=== PATIENT | female | born 1995 | race Caucasian/White ===

== ENCOUNTER 2017-09-17 13:46 | Emergency (ER) | payer MEDICAID ==
[2017-09-17] MEDS ORDERED: Ketorolac 60 MG/2 ML SDV IM ONE (14:13)
--- NOTE | 2017-09-17 14:25 | EDM.PDOC ---
ED HPI GENERAL MEDICAL PROBLEM - General Chief Complaint: Back Pain or Injury Stated Complaint: BACK PAIN Time Seen by Provider: 09/17/17 14:25 Source of Information: Reports: Patient History Limitations: Reports: No Limitations - History of Present Illness INITIAL COMMENTS - FREE TEXT/NARRATIVE: HISTORY AND PHYSICAL: History of present illness: 21-year-old female presented to the emergency department with chief complaint of right lower back pain 7 days. Patient is originally from [place] and visiting here as well as in the process of moving. States that on Sunday of last week she was moving a couch by herself and while lifting, felt a pop in her right lower back. She had immediate pain in her right lower back with radiation into the right lower extremity anterior surface. She did see her primary care provider there in [place] and initial x-rays were negative. She was scheduled to get an MRI today , but has been unable to travel back home secondary to a vehicle problem. She has not had physical therapy yet. She is currently visiting here with her who recently got a job here. States that her primary care physician had prescribed her some [place] 10-325, which seem to be helping with the pain. She has also been taking ibuprofen. States that today while picking up her son. She had repeat sharp shooting pain in her right lower back. She denies any bowel or bladder incontinence. She denies any sensory or muscle weakness. She has no significant past medical history or arteries to medications. Review of systems: As per history of present illness and below otherwise all systems reviewed and negative. Past medical history: As per history of present illness and as reviewed below otherwise noncontributory. Surgical history: As per history of present illness and as reviewed below otherwise noncontributory. Social history: No reported history of drug or alcohol abuse. Family history: As per history of present illness and as reviewed below otherwise noncontributory. Physical exam: HEENT: Atraumatic, normocephalic, pupils reactive, negative for conjunctival pallor or scleral icterus, mucous membranes moist, throat clear, neck supple, nontender, trachea midline. Lungs: Clear to auscultation, breath sounds equal bilaterally, chest nontender. Heart: S1S2, regular, negative for clicks, rubs, or JVD. Abdomen: Soft, nondistended, nontender. Negative for masses or hepatosplenomegaly. Negative for costovertebral tenderness. Pelvis: Stable nontender. Genitourinary: Deferred. Rectal: Deferred. Extremities: Atraumatic, negative for cords or calf pain. Neurovascular unremarkable. Neuro: Awake, alert, oriented. Cranial nerves II through XII unremarkable. Cerebellum unremarkable. Motor and sensory unremarkable throughout. Exam nonfocal. Back: Pain on palpation from L2-S1. Patient has mild improvement of pain with forward flexion and worsening with backwards extension. Positive straight leg test. Worst pain with rightward clean and improvement with left lean. Diagnostics: [] Therapeutics: [place] 10?3 25 by mouth every 6 hours when necessary pain #12, Flexeril 10 mg by mouth 3 times a day Impression: Lumbar disc herniation with radiculopathy Lower back pain Plan: After exam and history. Patient's symptoms most consistent with a lumbar disc herniation. She has no decreased strength or sensation. She has significant pain in the lumbar area extending into the right lower extremity. We'll give her [place] 10-325 #12 as well as Flexeril 10 mg by mouth 3 times a day. She should continue with resting the area as well as following up with her primary care provider. I did talk to her that she may need physical therapy and should get that MRI for further diagnostic evaluation. Instructed to return to emergency department if she had any new or worsening symptoms. Specifically, any bowel or bladder incontinence or significant muscle weakness or sensation loss in that lower extremity. back Pain Score (Numeric/FACES): 8 - Related Data Allergies Allergy/AdvReac Type Severity Reaction Status Date / Time No Known Allergies Allergy Verified 09/17/17 13:57 Home Meds: Home Meds . 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 ED EXAM, GENERAL - Physical Exam Exam: See Below Course - Vital Signs Last Recorded V/S: Last Vital Signs Temp 97.8 F 09/17/17 13:57 Pulse 63 09/17/17 13:57 Resp 20 09/17/17 13:57 BP 143/81 H 09/17/17 13:57 Pulse Ox 98 09/17/17 13:57 - Orders/Labs/Meds Meds: Medications Discontinued Medications Generic Name Dose Route Start Last Admin Trade Name Freq PRN Reason Stop Dose Admin Ketorolac Tromethamine 60 mg 09/17/17 14:13 Toradol IM 09/17/17 14:14 ONETIME ONE Departure - Departure Time of Disposition: 14:48 Disposition: Home, Self-Care 01 Condition: Good Clinical Impression: Lumbar disc herniation with radiculopathy, Lumbar back pain with radiculopathy affecting right lower extremity - Discharge Information Referrals: PCP,None [Primary Care Provider] - Forms: ED Department Discharge Additional Instructions: My general discharge The following information is given to patients seen in the emergency department who are being discharged to home. This information is to outline your options for follow-up care. We provide all patients seen in our emergency department with a follow-up referral. The need for follow-up, as well as the timing and circumstances, are variable depending upon the specifics of your emergency department visit. If you don't have a primary care physician on staff, we will provide you with a referral. We always advise you to contact your personal physician following an emergency department visit to inform them of the circumstance of the visit and for follow-up with them and/or the need for any referrals to a consulting specialist. The emergency department will also refer you to a specialist when appropriate. This referral assures that you have the opportunity for follow-up care with a specialist. All of these measure are taken in an effort to provide you with optimal care, which includes your follow-up. Under all circumstances we always encourage you to contact your private physician who remains a resource for coordinating your care. When calling for follow-up care, please make the office aware that this follow-up is from your recent emergency room visit. If for any reason you are refused follow-up, please contact the [facility] Emergency Department at and asked to speak to the emergency department charge nurse. [facility] [address], [place] [address] [facility] [address] [place] [id number] [facility] Primary Care - Women[facility] [address] [place] [id number] Take medication as prescribed. Return to emergency department if any new or worsening symptoms as discussed. Follow-up with primary care provider.
== END 2017-09-17 15:21 | disposition home or self-care (01) ==
LOC: MW.ED 13:46
DX: M51.16 Intervertebral disc disorders with radiculopathy, lumbar region (principal); F17.210 Nicotine dependence, cigarettes, uncomplicated
CPT/HCPCS: 96372; 99283; J1885

== ENCOUNTER 2017-09-21 16:10 | Emergency (ER) | payer MEDICAID ==
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
[2017-09-21] MEDS ORDERED: LORazepam 0.5 MG Tab PO ONE (16:43)
== END 2017-09-21 17:07 | disposition home or self-care (01) ==
LOC: MW.ED 16:10
DX: F41.0 Panic disorder [episodic paroxysmal anxiety] (principal); F17.210 Nicotine dependence, cigarettes, uncomplicated
CPT/HCPCS: 99283; A9270

== ENCOUNTER 2017-09-22 21:14 | Emergency (ER) | payer MEDICAID ==
--- NOTE | 2017-09-22 22:08 | EDM.PDOC ---
<Javid Lau - Last Filed: 09/22/17 22:02> ED HPI GENERAL MEDICAL PROBLEM - General Chief Complaint: Back Pain or Injury Stated Complaint: FELL DOWN STEPS Time Seen by Provider: 09/22/17 21:16 Source of Information: Reports: Patient History Limitations: Reports: No Limitations - History of Present Illness INITIAL COMMENTS - FREE TEXT/NARRATIVE: HISTORY AND PHYSICAL: History of present illness: [Sheree is a 21-year-old female here for low back pain following injury x 1 day. She states that she was taking her friends dog out and he tried to get outside as she was closing the door. She fell on to her back. She is having right low back pain and pain down her right leg. She has history of back pain, was seen in the ED on 09/17 for this. She was scheduled to have an MRI of her back at home in [place], [place] but is stuck in [place] currently. She denies any saddle anesthesia. States she has a hard time getting to the restroom due to the pain. ] Review of systems: As per history of present illness and below otherwise all systems reviewed and negative. Past medical history: As per history of present illness and as reviewed below otherwise noncontributory. Surgical history: As per history of present illness and as reviewed below otherwise noncontributory. Social history: No reported history of drug or alcohol abuse. Family history: As per history of present illness and as reviewed below otherwise noncontributory. Physical exam: HEENT: Atraumatic, normocephalic, pupils reactive, negative for conjunctival pallor or scleral icterus, mucous membranes moist, throat clear, neck supple, nontender, trachea midline. Lungs: Clear to auscultation, breath sounds equal bilaterally, chest nontender. Heart: S1S2, regular, negative for clicks, rubs, or JVD. Abdomen: Soft, nondistended, nontender. Negative for masses or hepatosplenomegaly. Negative for costovertebral tenderness. Pelvis: Stable nontender. Genitourinary: Deferred. Rectal: Deferred. Extremities: Right lumbar paraspinal tenderness and spasm. Patellar reflexes 2+ bilaterally. Normal motor exam distally. Atraumatic, negative for cords or calf pain. Neurovascular unremarkable. Neuro: Awake, alert, oriented. Cranial nerves II through XII unremarkable. Cerebellum unremarkable. Motor and sensory unremarkable throughout. Exam nonfocal. Notes: Patient offered CT scan which she decline, states she will schedule a follow up in the primary care clinic. Diagnostics: [] Therapeutics: [[place] 5/325 Flexeril 10mg] Impression: [Lumbar back pain ] Plan: [#1 Take medications as prescribed #2 Follow up with your primary care provider for further evaluation #3 Return to ED as needed as discussed. ] Definitive disposition and diagnosis as appropriate pending reevaluation and review of above. 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: Musculoskeletal History: Reports: None Neurological History: Reports: None Psychiatric History: Reports: Anxiety, Depression, PTSD Endocrine/Metabolic History: Reports: None Hematologic History: Reports: None Immunologic History: Reports: None Oncologic (Cancer) History: Reports: None Dermatologic History: Reports: None - Infectious Disease History Infectious Disease History: Reports: Chicken Pox - Past Surgical History Head Surgeries/Procedures: Reports: None HEENT Surgical History: Reports: None Cardiovascular Surgical History: Reports: None Respiratory Surgical History: Reports: None GI Surgical History: Reports: None Female Surgical History: Reports: Tubal Ligation Endocrine Surgical History: Reports: None Neurological Surgical History: Reports: None Musculoskeletal Surgical History: Reports: None Oncologic Surgical History: Reports: None Dermatological Surgical History: Reports: None Social & Family History - Family History Family Medical History: Noncontributory - Tobacco Use Smoking Status *Q: Current Every Day Smoker Years of Tobacco use: 6 Packs/Tins Daily: 0.1 - Caffeine Use Caffeine Use: Reports: Coffee - Recreational Drug Use Recreational Drug Use: No ED ROS GENERAL - Review of Systems Review Of Systems: ROS reveals no pertinent complaints other than HPI. ED EXAM,LOWER BACK PAIN/INJURY - Physical Exam Exam: See Below (see dictation) Course - Vital Signs Last Recorded V/S: Last Vital Signs Temp 36.1 C 09/22/17 21:29 Pulse 106 H 09/22/17 21:29 Resp 18 09/22/17 21:29 BP 132/99 H 09/22/17 21:29 Pulse Ox 97 09/22/17 21:29 Departure - Departure Time of Disposition: 22:08 Disposition: Home, Self-Care 01 Condition: Good Clinical Impression: Lumbar disc herniation with radiculopathy - Discharge Information Instructions: Herniated Disk, [id number] Referrals: PCP,None [Primary Care Provider] - Forms: ED Department Discharge Additional Instructions: The following information is given to patients seen in the emergency department who are being discharged to home. This information is to outline your options for follow-up care. We provide all patients seen in our emergency department with a follow-up referral. The need for follow-up, as well as the timing and circumstances, are variable depending upon the specifics of your emergency department visit. If you don't have a primary care physician on staff, we will provide you with a referral. We always advise you to contact your personal physician following an emergency department visit to inform them of the circumstance of the visit and for follow-up with them and/or the need for any referrals to a consulting specialist. The emergency department will also refer you to a specialist when appropriate. This referral assures that you have the opportunity for follow-up care with a specialist. All of these measure are taken in an effort to provide you with optimal care, which includes your follow-up. Under all circumstances we always encourage you to contact your private physician who remains a resource for coordinating your care. When calling for follow-up care, please make the office aware that this follow-up is from your recent emergency room visit. If for any reason you are refused follow-up, please contact the [facility] Emergency Department at and asked to speak to the emergency department charge nurse. [facility] Primary Care [address] [place] [address] #1 Take medications as prescribed #2 Follow up with your primary care provider #3 Return to ED as needed as discussed. <Erum Souza - Last Filed: 09/22/17 22:29> ED HPI GENERAL MEDICAL PROBLEM - History of Present Illness INITIAL COMMENTS - FREE TEXT/NARRATIVE: Please add to the physical exam above the rectal exam was performed and she had normal tone. She had no saddle anesthesia
== END 2017-09-22 22:28 | disposition home or self-care (01) ==
LOC: MW.ED 21:14
DX: M51.16 Intervertebral disc disorders with radiculopathy, lumbar region (principal); F17.210 Nicotine dependence, cigarettes, uncomplicated; Z91.040 Latex allergy status
CPT/HCPCS: 99283

== ENCOUNTER 2017-10-03 11:48 | Emergency (ER) | payer MEDICAID ==
--- NOTE | 2017-10-03 12:01 | EDM.PDOC ---
ED HPI GENERAL MEDICAL PROBLEM - General Chief Complaint: Back Pain or Injury Stated Complaint: BACK PAIN Time Seen by Provider: 10/03/17 12:00 Source of Information: Reports: Patient - History of Present Illness INITIAL COMMENTS - FREE TEXT/NARRATIVE: HISTORY AND PHYSICAL: History of present illness: [Patient presents with low back pain has been constant since the end of August initial injury was falling down some steps she is seeing primary care she is scheduled for physical therapy and MRI on the , she has taken ibuprofen and Lambert both with limited benefit although the Lambert helps her with sleep, pain is worsened by movement better at rest she rates 5 out of 10 at current. She has had previous Toradol injection with good result She does have some radiation down the front of her thigh to the level of her foot at times No fever nausea vomiting chills sweats no footdrop saddle anesthesia bowel or urine symptoms] Review of systems: As per history of present illness and below otherwise all systems reviewed and negative. Past medical history: As per history of present illness and as reviewed below otherwise noncontributory. Surgical history: As per history of present illness and as reviewed below otherwise noncontributory. Social history: No reported history of drug or alcohol abuse. Family history: As per history of present illness and as reviewed below otherwise noncontributory. Physical exam: HEENT: Atraumatic, normocephalic, pupils reactive, negative for conjunctival pallor or scleral icterus, mucous membranes moist, throat clear, neck supple, nontender, trachea midline. Lungs: Clear to auscultation, breath sounds equal bilaterally, chest nontender. Heart: S1S2, regular, negative for clicks, rubs, or JVD. Abdomen: Soft, nondistended, nontender. Negative for masses or hepatosplenomegaly. Negative for costovertebral tenderness. Pelvis: Stable nontender. Genitourinary: Deferred. Rectal: Deferred. Extremities: Atraumatic, negative for cords or calf pain. Neurovascular unremarkable. Straight leg raise to 30 does increase back pain but does not produce radiculopathy Neuro: Awake, alert, oriented. Cranial nerves II through XII unremarkable. Cerebellum unremarkable. Motor and sensory unremarkable throughout. Exam nonfocal. Footdrop or saddle anesthesia Diagnostics: [UA, hCG ] Therapeutics: [Toradol 60 IM Toradol 10 mg by mouth 3 times a day #15 no refill Lambert 5 per 325 #10 ] Impression: Low back pain ] Definitive disposition and diagnosis as appropriate pending reevaluation and review of above. 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: Musculoskeletal History: Reports: None Neurological History: Reports: None Psychiatric History: Reports: Anxiety, Depression, PTSD Endocrine/Metabolic History: Reports: None Hematologic History: Reports: None Immunologic History: Reports: None Oncologic (Cancer) History: Reports: None Dermatologic History: Reports: None - Infectious Disease History Infectious Disease History: Reports: Chicken Pox - Past Surgical History Head Surgeries/Procedures: Reports: None HEENT Surgical History: Reports: None Cardiovascular Surgical History: Reports: None Respiratory Surgical History: Reports: None GI Surgical History: Reports: None Female Surgical History: Reports: Tubal Ligation Endocrine Surgical History: Reports: None Neurological Surgical History: Reports: None Musculoskeletal Surgical History: Reports: None Oncologic Surgical History: Reports: None Dermatological Surgical History: Reports: None Social & Family History - Family History Family Medical History: Noncontributory - Caffeine Use Caffeine Use: Reports: Coffee ED ROS GENERAL - Review of Systems Review Of Systems: See Below ED EXAM, GENERAL - Physical Exam Exam: See Below Course - Vital Signs Last Recorded V/S: Last Vital Signs Temp 96.0 F 10/03/17 12:01 Pulse 100 10/03/17 12:01 Resp 20 10/03/17 12:01 BP 137/96 H 10/03/17 12:01 Pulse Ox 99 10/03/17 12:01 - Orders/Labs/Meds Orders: Active Orders 24 hr Category Date Time Status HCG QUALITATIVE,URINE [URCHEM] Stat Lab 10/03/17 12:00 Ordered Meds: Medications Discontinued Medications Generic Name Dose Route Start Last Admin Trade Name Freq PRN Reason Stop Dose Admin Ketorolac Tromethamine 60 mg 10/03/17 12:07 Toradol IM 10/03/17 12:08 ONETIME ONE Departure - Departure Time of Disposition: 12:27 Disposition: Home, Self-Care 01 Condition: Good Clinical Impression: Low back pain - Discharge Information Referrals: Javid Lau PA [Primary Care Provider] - Forms: ED Department Discharge Additional Instructions: The following information is given to patients seen in the emergency department who are being discharged to home. This information is to outline your options for follow-up care. We provide all patients seen in our emergency department with a follow-up referral. The need for follow-up, as well as the timing and circumstances, are variable depending upon the specifics of your emergency department visit. If you don't have a primary care physician on staff, we will provide you with a referral. We always advise you to contact your personal physician following an emergency department visit to inform them of the circumstance of the visit and for follow-up with them and/or the need for any referrals to a consulting specialist. The emergency department will also refer you to a specialist when appropriate. This referral assures that you have the opportunity for follow-up care with a specialist. All of these measure are taken in an effort to provide you with optimal care, which includes your follow-up. Under all circumstances we always encourage you to contact your private physician who remains a resource for coordinating your care. When calling for follow-up care, please make the office aware that this follow-up is from your recent emergency room visit. If for any reason you are refused follow-up, please contact the [facility] emergency department at and asked to speak to the emergency department charge nurse. - My Orders Last 24 Hours: My Active Orders 10/03/17 12:00 HCG QUALITATIVE,URINE [URCHEM] Stat - Assessment/Plan Last 24 Hours: My Active Orders 10/03/17 12:00 HCG QUALITATIVE,URINE [URCHEM] Stat
[2017-10-03] MEDS ORDERED: Ketorolac 60 MG/2 ML SDV IM ONE ×2 (12:07→12:30)
== END 2017-10-03 12:35 | disposition home or self-care (01) ==
LOC: MW.ED 11:48
DX: M54.5 Low back pain (principal); Z91.040 Latex allergy status
CPT/HCPCS: 96372; 99283; J1885